=== PATIENT | female | born 1980 | race Asian ===

== ENCOUNTER 2019-06-18 07:58 | Outpatient (CLI) | payer OTHER ==
--- NOTE | 2019-06-18 09:07 | ULT ---
ULTRASOUND ABDOMEN COMPLETE: DATE: 06/18/2019 HISTORY: 38-year-old female with polycystic kidney disease COMPARISON: No prior studies of any modality of any body part available on [facility] PACS. FINDINGS: Liver:Normal size and echogenicity. Multiple. Hepatic cysts. Typical one is approximately 1.5 cm. Gallbladder:No abnormality identified. Common duct:5 mm Spleen:No splenomegaly Pancreas:No pancreatic abnormality identified. Kidneys:Right kidney 18 x 8.5 x 11 cm. Left kidney 19 x 10 x 14 cm. A very large number of cysts of v arying sizes, from small to very large. No hydronephrosis in the right kidney. In the left kidney, the left renal pelvis, proximal left ureter, and left major calyces are severely dilated. One of the larger cysts on the right is approximate 7 x 6.5 x 4.5 cm. One of the larger cysts on the left is 9 x 5.5 x 6 cm.. Abdominal aorta:No aneurysm Inferior vena cava:No abnormality identified IMPRESSION: 1. Autosomal dominant polycystic kidney disease with very large number of bilateral renal cysts and n ephromegaly. 2. Severe left hydronephrosis
== END 2019-06-18 07:59 | disposition home or self-care (01) ==
LOC: ULT 07:58
PROVIDERS: ATTEND Internal Medicine
DX: Q61.3 Polycystic kidney, unspecified (principal); N13.30 Unspecified hydronephrosis; N28.81 Hypertrophy of kidney; N28.1 Cyst of kidney, acquired
CPT/HCPCS: 36415; 80053; 80061; 81001; 83735; 84443; 85025; 87086; 93975

== ENCOUNTER 2019-07-05 10:33 | Outpatient (CLI) | payer OTHER ==
--- NOTE | 2019-07-05 11:44 | CT ---
CT Stone Protocol History: Hydronephrosis Comparison: None. Findings: Lung bases are clear. No pericardial effusion. Polycystic kidneys. No acute osseous abnorma lity. No dilated loops of large or small bowel. The spleen and pancreas unremarkable. Multiple liver cysts. Impression: Polycystic kidneys. No definite evidence of hydroureteronephrosis.
== END 2019-07-05 10:34 | disposition home or self-care (01) ==
LOC: SCSCT 10:33
PROVIDERS: ATTEND Urology
DX: N13.30 Unspecified hydronephrosis (principal); Q61.3 Polycystic kidney, unspecified
CPT/HCPCS: 74176

== ENCOUNTER 2020-02-28 12:20 | Outpatient (CLI) | payer OTHER ==
--- NOTE | 2020-02-28 13:34 | MRI ---
MR angiogram of the head: 02/28/2020 HISTORY: Cerebral aneurysm, history of polycystic kidney disease, evaluate for an associated intracra nial "Manuel" aneurysm TECHNIQUE: Axial diffusion weighted imaging of the brain obtained. Then, routine noncontrast enhanced [id number] MR angiography of the brain obtained. FINDINGS: The diffusion weighted imaging demonstrates no evidence for acute infarction. Antegrade blood flow is seen involving the imaged portions of the distal vertebral arteries. The basi lar artery and its branches are patent. No saccular aneurysm, high-grade stenosis, or vascular occlusion is evident within the posterior circulation. The imaged extracranial internal carotid artery appears grossly unremarkable. The bilateral cavernous carotid arteries demonstrate decreased signal which is probably artifactual, associated with tortuosity. Areas of cavernous carotid stenosis cannot be excluded. There is questionable stenosis at the origin of the right A1 segment as well. The A1 segment and the M1 segmen t appears patent. The MCA bifurcation is unremarkable. Distal MCA and ELDER branches appear intact. No saccular aneurysm is seen involving the anterior circulation. IMPRESSION: No evidence for acute infarction. No saccular aneurysm identified. Questionable areas of intracranial stenosis which could be better assessed via CT angiogram.
--- NOTE | 2020-02-28 16:43 | CT ---
CT ABDOMEN WITHOUT IV CONTRAST: 02/28/20 INDICATIONS: Polycystic kidney disease. COMPARISON: Comparison made to CT abdomen and pelvis without IV contrast dated 07/05/19. FINDINGS: Lung bases clear. Liver shows numerous hepatic cystic lesions which appear stable in size and number from prior exam. Spleen unremarkable. Pancreas unremarkable as delineated. Evaluation is suboptimal without IV contrast. Stomach unremarkable. Adrenal glands appear normal but are difficult to delineate. Kidneys are enlarged with multiple bilateral renal cystic lesions. Larger cystic lesions measure up t o 7 cm. the size and appearance of the renal cyst and kidneys do not appear significantly changed. Th ere are scattered calcifications within both kidneys which appear stable. No evidence of hydronephros is. Nonspecific periaortic lymph nodes appears stable. Visualized small and large bowel loops appear unremarkable. Osseous structures unremarkable. IMPRESSION: Findings consistent with polycystic kidney disease. CT abdomen findings appeasr stable when compared to 07/05/19. POS: AGW
== END 2020-02-28 12:21 | disposition home or self-care (01) ==
LOC: BICMRI 12:20
PROVIDERS: ATTEND Internal Medicine Nephrology
DX: I67.1 Cerebral aneurysm, nonruptured (principal); Q61.2 Polycystic kidney, adult type; N18.30 Chronic kidney disease, stage 3 unspecified
CPT/HCPCS: 70544; 74150